=== PATIENT | female | born 2000 | race African-American/Black ===

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

== ENCOUNTER 2024-02-26 11:17 | Emergency (ER) | payer OTHER ==
[2024-02-26 11:53] LABS: Bilirubin Negative (Negative); Blood, Urine Moderate (Negative); Clarity Cloudy (Clear); Glucose, Urine (Dipstick) Negative (Negative); Ketone, Urine Negative (Negative); Leukocyte Small (Negative); Nitrite Negative (Negative); Protein, Urine (Dipstick) Negative (Neg-Trace)
[2024-02-26 11:54] LABS: Pregnancy Test - Urine (BHCG) Negative (Negative); Pregu Control Background? CLEAR/WHITE (CLR/WHITE); Pregu Control Bar Appear? YES (CONTROL BAR)
[2024-02-26 11:59] LABS: Bacteria/HPF 3+ HPF (None Seen); CAUTI Indications for Culture Pregnancy; Squamous Epithelial 21-50 HPF (0-3)
[2024-02-26 12:00] LABS: Urine Culture Reflex Yes Yes
== END 2024-02-26 12:27 | disposition home or self-care (01) ==
LOC: BURERS 11:17
DX: S05.11XA Contusion of eyeball and orbital tissues, right eye, initial encounter (principal); Y04.0XXA Assault by unarmed brawl or fight, initial encounter
CPT/HCPCS: 70486; 81001; 81025; 87086

== ENCOUNTER 2024-05-29 22:37 | Emergency (ER) | payer BC, OTHER ==
[2024-05-29] MEDS ORDERED: Ibuprofen 200 MG TAB ONE (22:50)
[2024-05-29] MEDS ORDERED: Ondansetron ODT 4 MG TAB ONE (22:50)
[2024-05-29 23:28] LABS: Pregnancy Test - Urine (BHCG) Negative (Negative); Pregu Control Background? CLEAR/WHITE (CLR/WHITE); Pregu Control Bar Appear? YES (CONTROL BAR); Specific Gravity 1.023 (1.002-1.036)
== END 2024-05-29 23:36 | disposition home or self-care (01) ==
LOC: BURERS 22:37
DX: R51.9 Headache, unspecified (principal); Z55.6 Problems related to health literacy
CPT/HCPCS: 81025; 99284; Q0162